=== PATIENT | male | born 1945 | race Caucasian/White ===

== ENCOUNTER → 2016-09-21 | Outpatient (CLI) | payer MEDICARE ==
[~2016-09-21] MED LIST: B-121000 MCG PO; CATAPRES 0.1MG0.1 MG PO; CHLORTHALIDONE25 MG PO; COQ1050 MG PO; DAILY MULTIPLE1 EAC1 PO; FELODIPINE ER10 MG PO; FISH OIL 1,2001 EAC1 PO; FLECAINIDE ACET50 MG PO; HYGROTON TAB 2525 MG PO; LISINOPRIL10 MG PO; MICRO-K PO; NORCO 7.5-3251 EACH PO; OMEPRAZOLE20 MG PO; OSTEO BI-FLEX1 EAC1 PO; POTASSIUM CHLO10 ME2 PO; SIMVASTATIN20 MG PO; VITAMIN B-12500 MC2 PO; VITAMIN D 11000 UNIT PO; XARELTO20 MG PO
[2016-09-21 12:26] LABS: HEMOGLOBIN 15.5 gm/dl (14.0-17.5); RED BLOOD COUNT 5.11 M/UL (4.20-5.50); WHITE BLOOD COUNT 8.4 K/UL (4.5-11.0)
[2016-09-21 12:41] LABS: BUN/CREATININE RATIO 20 (0-10)
== END ==
LOC: OPSV2 10:20
PROVIDERS: Orthopaedic Surgery
DX: Z01.812 Encounter for preprocedural laboratory examination (principal); Z01.810 Encounter for preprocedural cardiovascular examination; Z01.818 Encounter for other preprocedural examination; M17.11 Unilateral primary osteoarthritis, right knee
CPT/HCPCS: 36415; 71020; 80048; 81001; 85025; 87081; 93005

== ENCOUNTER → 2016-10-05 | Outpatient (CLI) | payer MEDICARE ==
[2016-10-05 11:34] LABS: BUN/CREATININE RATIO 18 (0-10)
== END ==
LOC: LAB 10:39
PROVIDERS: Orthopaedic Surgery
DX: Z01.812 Encounter for preprocedural laboratory examination (principal); M17.11 Unilateral primary osteoarthritis, right knee
CPT/HCPCS: 36415; 80048; 86850; 86900; 86901

== ENCOUNTER 2016-10-06 05:44 | Day surgery (SDC) | payer MEDICARE ==
[~2016-10-06] VITALS: Ht 175.3 cm; Wt 108.4 kg
[~2016-10-06 05:44] MED LIST changes: -COQ1050 MG PO; -DAILY MULTIPLE1 EAC1 PO; -FELODIPINE ER10 MG PO; -HYGROTON TAB 2525 MG PO; -LISINOPRIL10 MG PO; -MICRO-K PO; -NORCO 7.5-3251 EACH PO; -POTASSIUM CHLO10 ME2 PO; -VITAMIN B-12500 MC2 PO; -VITAMIN D 11000 UNIT PO
[2016-10-06] MEDS ORDERED: VITAMIN B-12500 MC2 PO (06:25)
[2016-10-06] MEDS ORDERED: COQ1050 MG PO (06:25)
[2016-10-06] MEDS ORDERED: DAILY MULTIPLE1 EAC1 PO (06:26)
[2016-10-06] MEDS ORDERED: VITAMIN D 11000 UNIT PO (06:28)
[2016-10-06] MEDS ORDERED: MICRO-K PO (06:29)
[2016-10-06] MEDS ORDERED: HYGROTON TAB 2525 MG PO (06:31)
[2016-10-06 14:32] LABS: BUN/CREATININE RATIO 19 (0-10)
[2016-10-06] MEDS ORDERED: POTASSIUM CHLO10 ME2 PO (15:03)
[2016-10-06] MEDS ORDERED: FELODIPINE ER10 MG PO (15:04)
[2016-10-06] MEDS ORDERED: LISINOPRIL10 MG PO (15:05)
[2016-10-07 05:53] LABS: RED BLOOD COUNT 4.36 M/UL (4.20-5.50); WHITE BLOOD COUNT 14.8 K/UL (4.5-11.0)
[2016-10-07 06:19] LABS: BUN/CREATININE RATIO 17 (0-10)
[2016-10-07] MEDS ORDERED: NORCO 7.5-3251 EACH PO (10:35)
== END 2016-10-07 18:46 | disposition home or self-care (01) ==
LOC: OR 05:44 → M/S 12:03 → OR 12:03 → M/S 12:24 → OR 12:24 → M/S 12:24 → OR 12:24 → M/S 10-07 18:46 → OR 10-07 18:46
PROVIDERS: Orthopaedic Surgery
PROC: 0SRC0L9 Replacement of Right Knee Joint with Medial Unicondylar Synthetic Substitute, Cemented, Open Approach (ICD-10-PCS; principal; 2016-10-06 07:45)
DX: M17.11 Unilateral primary osteoarthritis, right knee (principal); M25.561 Pain in right knee; E87.6 Hypokalemia; R00.1 Bradycardia, unspecified; Z51.89 Encounter for other specified aftercare; I48.91 Unspecified atrial fibrillation; I10 Essential (primary) hypertension; E78.5 Hyperlipidemia, unspecified; K21.9 Gastro-esophageal reflux disease without esophagitis; Z85.46 Personal history of malignant neoplasm of prostate; G47.33 Obstructive sleep apnea (adult) (pediatric); Z98.890 Other specified postprocedural states; Z79.899 Other long term (current) drug therapy; Z79.01 Long term (current) use of anticoagulants; Z82.49 Family history of ischemic heart disease and other diseases of the circulatory system
CPT/HCPCS: 36415; 73560; 80048; 84132; 85025; 94660; 97110; 97116; 97535; C1713; C1776; J0171; J0690; J1100; J2250; J2270; J2405; J2710; J2795; J3010; J3370; J7120

== ENCOUNTER → 2021-01-16 | Outpatient (CLI) | payer MEDICARE ==
[~2021-01-16] MED LIST changes: +AMIODARONE HCL200 MG PO; +CO Q10 PO; +COQ1050 MG PO; +DAILY MULTIPLE1 EAC1 PO; +FELODIPINE ER10 MG PO; +FISH OIL PO; +FUROSEMIDE40 MG PO; +HYDRALAZINE HCL25 MG PO; +HYGROTON TAB 2525 MG PO; +LISINOPRIL10 MG PO; +LISINOPRIL40 MG PO; +METOPROLOL TART25 MG PO; +METOPROLOL TART50 MG PO; +MICRO-K PO; +NORCO 7.5-3251 EACH PO; +OMEPRAZOLE20 M1 PO; +ONE A DAY VIT PO; +POTASSIUM CHLO10 ME1 PO; +POTASSIUM CHLO10 ME2 PO; +VIT D3 PO; +VITAMIN B-12500 MC2 PO; +VITAMIN D 11000 UNIT PO
== END ==
LOC: KOH-I 13:43
DX: N18.32 Chronic kidney disease, stage 3b (principal); N28.1 Cyst of kidney, acquired
CPT/HCPCS: 76775